=== PATIENT | female | born 1955 ===

== ENCOUNTER 2023-01-31 12:14 | Inpatient (IN) | payer OTHER, MEDICAID ==
[2023-01-31 13:48] VITALS: BMI 33.5
[2023-01-31] MEDS ORDERED: Nitroglycerin 0.4 MG TAB (25 Tab Bottle) SL PRN (14:45)
[2023-01-31] MEDS ORDERED: Acetaminophen 500 MG TAB PO PRN (14:45)
[2023-01-31] MEDS ORDERED: Ondansetron ODT 4 MG TAB PO PRN (14:45)
[2023-01-31] MEDS ORDERED: hydrALAZINE 20 MG/ML VIAL SLOW IVP PRN (14:45)
[2023-01-31] MEDS ORDERED: Dextrose 50% Abboject 50 ML SYRINGE SLOW IVP PRN (14:45)
[2023-01-31] MEDS ORDERED: Dextrose 5% in Water 1,000 ML IV PRN (14:45)
[2023-01-31] MEDS ORDERED: HumaLOG 300 UNITS/3 ML VIAL SC PRN ×2 (14:45)
[2023-01-31 15:05] LABS: #Basophils 0.1 thou/uL (0.0-0.2); #Eosinphils 0.7 thou/uL (0.0-0.7); #Lymphocytes 2.9 thou/uL (1.20-3.40); #Monocytes 0.5 thou/uL (0.11-0.59); #Neutrophils 7.7 thou/uL (1.40-6.50); %Basophils 0.6 % (0.0-1.0); %Eosinophils 5.8 % (0.0-10.0); %Lymphocytes 24.3 % (21.0-51.0); %Monocytes 4.1 % (0.0-10.0); %Neutrophils 65.3 % (42.0-75.0); Hemoglobin 13.5 g/dL (12.0-16.0); Mean Corpuscular Hemoglobin 29.9 pg (27.0-31.0); Mean Corpuscular Volume 90.6 fl (78.0-98.0); Mean Platelet Volume 6.8 fL (7.4-10.4); Platelet Count 343 10x3/uL (130-400); RBC Distribution Width 12.6 % (11.5-14.5); Red Blood Cell (RBC) Count 4.52 mill/uL (4.20-5.40); White Blood Cell (WBC) Count 11.8 10x3/uL (4.8-10.8)
[2023-01-31 15:32] LABS: Anion Gap 12 mmol/L (10-20); BUN (Urea Nitrogen) 12 mg/dL (9.8-20.1); Calc. Creatinine Clearance 99 mL/min (70-130); Carbon Dioxide 25 mmol/L (23-31); Chloride 105 mmol/L (98-107); Estimated GFR 86; Glucose 159 mg/dL (80-115); Potassium 4.4 mmol/L (3.5-5.1); Sodium 138 mmol/L (136-145)
[2023-01-31] MEDS: Sodium Chloride 0.9% 1,000 ML IV SCH (16:16)
[2023-01-31] MEDS: Aspirin Chewable 81 MG TAB PO SCH ×2 (16:17→16:18)
[2023-01-31] MEDS ORDERED: Communication Order-Pharmacy FS SCH (17:00)
[2023-01-31] MEDS: Atorvastatin Calcium 40 MG TAB PO SCH (20:30)
[2023-01-31] MEDS: Famotidine 20 MG TAB PO SCH (20:30)
[2023-01-31] MEDS: buPROPion 75 MG TAB PO SCH (20:35)
[2023-01-31] MEDS ORDERED: Insulin Glargine 30 UNITS/0.3 ML VIAL SC SCH (21:00)
[2023-02-01] MEDS: Ondansetron PF 4 MG/2 ML Vial IVP PRN (04:23)
[2023-02-01 05:03] LABS: #Basophils 0.1 thou/uL (0.0-0.2); #Eosinphils 0.8 thou/uL (0.0-0.7); #Lymphocytes 2.4 thou/uL (1.20-3.40); #Monocytes 0.5 thou/uL (0.11-0.59); #Neutrophils 5.6 thou/uL (1.40-6.50); %Basophils 0.9 % (0.0-1.0); %Eosinophils 8.9 % (0.0-10.0); %Lymphocytes 25.3 % (21.0-51.0); %Monocytes 5.7 % (0.0-10.0); %Neutrophils 59.2 % (42.0-75.0); Hemoglobin 12.5 g/dL (12.0-16.0); Mean Corpuscular HGB CONC 33.6 g/dL (32.0-36.0); Mean Corpuscular Hemoglobin 30.3 pg (27.0-31.0); Mean Corpuscular Volume 90.1 fl (78.0-98.0); Platelet Count 301 10x3/uL (130-400); RBC Distribution Width 12.4 % (11.5-14.5); Red Blood Cell (RBC) Count 4.14 mill/uL (4.20-5.40); White Blood Cell (WBC) Count 9.4 10x3/uL (4.8-10.8)
[2023-02-01] MEDS: Famotidine 20 MG TAB PO SCH ×2 (05:28→21:07)
[2023-02-01] MEDS: buPROPion 75 MG TAB PO SCH ×2 (05:28→21:07)
[2023-02-01 05:29] LABS: Anion Gap 12 mmol/L (10-20); BUN (Urea Nitrogen) 16 mg/dL (9.8-20.1); Calc. Creatinine Clearance 99 mL/min (70-130); Calcium 9.4 mg/dL (7.8-10.44); Carbon Dioxide 26 mmol/L (23-31); Cardiac Risk 4.7 (Less than 4.5); Chloride 107 mmol/L (98-107); Cholesterol 146 mg/dl (< 200 Desired); Estimated GFR 86; Glucose 147 mg/dL (80-115); HDL Cholesterol 31 mg/dL (>60 Neg Risk); LDL Cholesterol, Calculated 96 mg/dL; Potassium 4.1 mmol/L (3.5-5.1); Sodium 141 mmol/L (136-145); Triglycerides 94 mg/dL (Less than 150)
[2023-02-01] MEDS ORDERED: Lidocaine 1% (PF) 30 ML VIAL ONE (08:00)
[2023-02-01] MEDS ORDERED: Heparin 10,000 UNITS/ 10 ML VIAL ONE (08:00)
[2023-02-01] MEDS ORDERED: Midazolam HCl 2 mg/2 ml Vial ONE (08:31)
[2023-02-01] MEDS ORDERED: Aspirin Chewable 81 MG TAB PO SCH (09:00)
[2023-02-01] MEDS ORDERED: Lisinopril 20 MG TAB PO SCH (09:00)
[2023-02-01] MEDS: Sodium Chloride 0.9% 1,000 ML IV SCH (12:32)
[2023-02-01] MEDS ORDERED: Communication Order-Pharmacy FS SCH (17:29)
[2023-02-01] MEDS ORDERED: Temazepam 15 MG CAP PO PRN (17:29)
[2023-02-01] MEDS: Atorvastatin Calcium 40 MG TAB PO SCH (21:07)
[2023-02-01] MEDS ORDERED: CEFAZOLIN 2 GM in Sodium Chloride 0.9% 100 ML IVPB SCH (22:15)
[2023-02-02] MEDS ORDERED: Sevoflurane 250 ML INH ANEST BOTTLE ONE (04:59)
[2023-02-02 05:10] LABS: Anion Gap 11 mmol/L (10-20); BUN (Urea Nitrogen) 12 mg/dL (9.8-20.1); Calc. Creatinine Clearance 96 mL/min (70-130); Calcium 9.4 mg/dL (7.8-10.44); Carbon Dioxide 28 mmol/L (23-31); Chloride 106 mmol/L (98-107); Estimated GFR 84; Glucose 195 mg/dL (80-115); Potassium 4.3 mmol/L (3.5-5.1); Sodium 141 mmol/L (136-145)
[2023-02-02] MEDS: Ondansetron PF 4 MG/2 ML Vial IVP PRN ×3 (05:56→21:32)
[2023-02-02] MEDS ORDERED: Albumin 5% 500 ML ONE (06:31)
[2023-02-02] MEDS ORDERED: Fentanyl 250 MCG/5 ML VIAL ONE (06:44)
[2023-02-02] MEDS ORDERED: Midazolam HCl 5 mg/5 ml Vial ONE (06:44)
[2023-02-02] MEDS ORDERED: Insulin Regular 300 UNITS/3 ML VIAL ONE (06:45)
[2023-02-02] MEDS ORDERED: Norepinephrine 4 MG/4 ML VIAL ONE (06:45)
[2023-02-02] MEDS ORDERED: Aminocaproic Acid 5 GM/20 ML VIAL ONE (06:45)
[2023-02-02] MEDS ORDERED: Rocuronium Bromide 50 MG/5 ML VIAL ONE (06:45)
[2023-02-02] MEDS ORDERED: EPINEPHrine 1 MG/ML AMP ONE (06:45)
[2023-02-02] MEDS ORDERED: Heparin 10,000 UNITS/1 ML VIAL 30,000 UNITS in Sodium Chloride 0.9% 1,000 ML FS SCH (07:00)
[2023-02-02] MEDS ORDERED: CEFAZOLIN 2 GM VIAL ONE (07:25)
[2023-02-02] MEDS ORDERED: Lidocaine 1% MPF 2 ML VIAL ONE (07:25)
[2023-02-02] MEDS ORDERED: Sodium Chloride 0.9% 100 ML ONE (07:25)
[2023-02-02] MEDS ORDERED: Papaverine 60 MG/2 ML VIAL ONE (07:42)
[2023-02-02] MEDS ORDERED: Lidocaine 1% PF 5 ML VIAL ONE (07:42)
[2023-02-02] MEDS ORDERED: Thrombin 5000 UNITS/5 ML VIAL ONE (07:42)
[2023-02-02] MEDS ORDERED: Protamine Sulfate 250 MG/25 ML VIAL ONE (07:42)
[2023-02-02] MEDS ORDERED: Potassium Chloride 60 MEQ/30 ML VIAL ONE (07:42)
[2023-02-02] MEDS ORDERED: Esmolol 100 MG/10 ML VIAL ONE (07:42)
[2023-02-02] MEDS ORDERED: Heparin 5,000 UNITS/ML VIAL ONE (07:42)
[2023-02-02] MEDS ORDERED: Vancomycin 1 GM VIAL ONE (07:42)
[2023-02-02] MEDS ORDERED: Magnesium 5 GM/10 ML VIAL ONE (07:42)
[2023-02-02] MEDS ORDERED: PROPOFOL 200 MG/20 ML VIAL ONE (07:42)
[2023-02-02] MEDS ORDERED: Mannitol 12.5 GM/50 ML ONE (07:42)
[2023-02-02] MEDS ORDERED: Lidocaine 2% PF 100 mg/5 ml Syringe ONE (07:42)
[2023-02-02] MEDS ORDERED: Heparin 30,000 units/30 ml VIAL ONE (07:42)
[2023-02-02] MEDS ORDERED: Sodium Bicarb 50 MEQ/50 ML VIAL ONE (07:42)
[2023-02-02] MEDS ORDERED: Cardioplegic Soln 1,000 ML BAG ONE (07:42)
[2023-02-02] MEDS ORDERED: Rocuronium Bromide 10 MG/ML (10ML VIAL) ONE (07:42)
[2023-02-02] MEDS ORDERED: Calcium Chloride 1 GM/10 ML Abboject SYRINGE ONE (07:42)
[2023-02-02] MEDS ORDERED: Bisacodyl 10 MG SUPP PR PRN (11:35)
[2023-02-02] MEDS ORDERED: Post-Op Insulin Drip Protocol IVPB ONE (11:35)
[2023-02-02] MEDS ORDERED: Nitroglycerin 50 MG/250 ML BOT 250 ML IVPB PRN (11:35)
[2023-02-02] MEDS ORDERED: Ipratropium/Albuterol 3 ML NEB NEB PRN (11:35)
[2023-02-02] MEDS ORDERED: Mag-Al 1200 mg/1200 mg/30 ML UDCUP PO PRN (11:35)
[2023-02-02] MEDS ORDERED: Hetastarch 6% 500 ML 500 ML IVPB PRN (11:35)
[2023-02-02] MEDS ORDERED: Amiodarone 150 MG in Dextrose 5% in Water 100 ML IVPB SCH (11:35)
[2023-02-02] MEDS ORDERED: DOPamine 400 MG/D5W 250 ML 250 ML IVPB PRN (11:35)
[2023-02-02] MEDS ORDERED: niCARdipine 25 MG in Sodium Chloride 0.9% 250 ML 250 ML IVPB PRN (11:35)
[2023-02-02] MEDS ORDERED: Guaifenesin DM 100-10/5 ML UDCUP PO PRN (11:35)
[2023-02-02] MEDS ORDERED: NOREPINEPHRINE 8 MG/250 ML-D5W 250 ML IVPB PRN (11:35)
[2023-02-02] MEDS ORDERED: fentaNYL 50 mcg/mL 1 mL Vial SLOW IVP PRN (11:39)
[2023-02-02 11:57] LABS: Actual Bicarbonate (HCO3a) 22.3 mEq/L (22-28); Base Excess (BEa) -2.4 mEq/L (-2.0 to +3.0); CO2 Tension 37.9 mmHg (35.0-45.0); Calcium, Ionized (arterial) 1.16 mmol/L (1.12-1.30); Carboxyhemoglobin (COHb) 0.6 gm% (0.0-3.0); Hemoglobin (Hb) 11.9 g/dL (12.0-16.0); O2 Tension (PaO2), arterial 76.6 mmHg (> 80.0); Potassium - ABG Lab 3.59 mmol/L (3.70-5.30); pH, Arterial 7.39 (7.35-7.45)
[2023-02-02] MEDS ORDERED: Dextrose 5% in Water 1,000 ML IV PRN (12:00)
[2023-02-02] MEDS ORDERED: Insulin Regular 300 UNITS/3 ML VIAL SC PRN (12:00)
[2023-02-02] MEDS ORDERED: HUMULIN R 100 UNITS in Sodium Chloride 0.9% 100 ML IVPB SCH (12:00)
[2023-02-02] MEDS ORDERED: Dextrose 50% Abboject 50 ML SYRINGE SLOW IVP PRN (12:00)
[2023-02-02 12:02] LABS: #Basophils 0.1 thou/uL (0.0-0.2); #Eosinphils 0.2 thou/uL (0.0-0.7); #Lymphocytes 1.3 thou/uL (1.20-3.40); #Monocytes 0.4 thou/uL (0.11-0.59); #Neutrophils 14.4 thou/uL (1.40-6.50); %Basophils 0.4 % (0.0-1.0); %Eosinophils 1.5 % (0.0-10.0); %Lymphocytes 7.9 % (21.0-51.0); %Monocytes 2.3 % (0.0-10.0); %Neutrophils 87.8 % (42.0-75.0); Hemoglobin 11.7 g/dL (12.0-16.0); Mean Corpuscular HGB CONC 33.6 g/dL (32.0-36.0); Mean Corpuscular Hemoglobin 30.7 pg (27.0-31.0); Mean Corpuscular Volume 91.2 fl (78.0-98.0); Platelet Count 202 10x3/uL (130-400); RBC Distribution Width 12.4 % (11.5-14.5); Red Blood Cell (RBC) Count 3.83 mill/uL (4.20-5.40); White Blood Cell (WBC) Count 16.4 10x3/uL (4.8-10.8)
[2023-02-02 12:04] LABS: Puncture Site ALINE
[2023-02-02 12:05] LABS: ALV-art Gradient 303.825 mmHg (0-20)
[2023-02-02] MEDS: Sodium Chloride 0.9% 1,000 ML IV SCH (12:16)
[2023-02-02] MEDS: Lactated Ringer's 1,000 ML IV SCH (12:16)
[2023-02-02 12:17] LABS: INR-International Normal Ratio 1.2; PTT 28.2 sec (22.9-36.1); Prothrombin Time 16.1 sec (12.0-14.7)
[2023-02-02 12:23] LABS: Anion Gap 12 mmol/L (10-20); BUN (Urea Nitrogen) 8 mg/dL (9.8-20.1); Calc. Creatinine Clearance 121 mL/min (70-130); Calcium 8.3 mg/dL (7.8-10.44); Carbon Dioxide 22 mmol/L (23-31); Chloride 112 mmol/L (98-107); Estimated GFR 98; Glucose 142 mg/dL (80-115); Potassium 3.6 mmol/L (3.5-5.1); Sodium 142 mmol/L (136-145)
[2023-02-02] MEDS: Potassium Chloride 20 MEQ/100 ML PREMIX BAG IVPB PRN ×2 (12:34→19:51)
[2023-02-02] MEDS: Amiodarone 450 MG in Dextrose 5% in Water 250 ML IVPB SCH ×2 (12:36→20:09)
[2023-02-02] MEDS: Morphine 2 MG/ML VIAL SLOW IVP PRN ×2 (12:58→14:18)
[2023-02-02] MEDS: CEFAZOLIN 2 GM in Sodium Chloride 0.9% 100 ML IVPB SCH ×2 (15:03→23:47)
[2023-02-02 16:20] LABS: Hemoglobin 11.7 g/dL (12.0-16.0)
[2023-02-02 17:17] LABS: Actual Bicarbonate (HCO3a) 21.3 mEq/L (22-28); Base Excess (BEa) -3.6 mEq/L (-2.0 to +3.0); Calcium, Ionized (arterial) 1.15 mmol/L (1.12-1.30); Carboxyhemoglobin (COHb) 0.7 gm% (0.0-3.0); Hemoglobin (Hb) 12.5 g/dL (12.0-16.0); O2 Tension (PaO2), arterial 124.8 mmHg (> 80.0); Potassium - ABG Lab 3.81 mmol/L (3.70-5.30); pH, Arterial 7.37 (7.35-7.45)
[2023-02-02 17:18] LABS: Potassium 3.8 mmol/L (3.5-5.1)
[2023-02-02 17:22] LABS: Puncture Site Arterial Line
[2023-02-02] MEDS: fentaNYL 50 mcg/mL 1 mL Vial SLOW IVP PRN ×3 (17:31→21:19)
[2023-02-02] MEDS: Famotidine/PF 20 mg/2ml Vial SLOW IVP SCH (21:32)
[2023-02-02] MEDS: HYDROcodone/Acetaminophen 5/325 mg Tablet PO PRN (22:04)
[2023-02-02] MEDS: Atorvastatin Calcium 20 MG TAB PO SCH (22:05)
[2023-02-03] MEDS: fentaNYL 50 mcg/mL 1 mL Vial SLOW IVP PRN ×2 (04:16→20:10)
[2023-02-03 04:31] LABS: #Lymphocytes 1.6 thou/uL (1.20-3.40); #Neutrophils 11.2 thou/uL (1.40-6.50); %Basophils 0.1 % (0.0-1.0); %Eosinophils 0.1 % (0.0-10.0); %Lymphocytes 11.2 % (21.0-51.0); %Monocytes 7.5 % (0.0-10.0); %Neutrophils 81.1 % (42.0-75.0); Hemoglobin 11.6 g/dL (12.0-16.0); Mean Corpuscular Hemoglobin 30.2 pg (27.0-31.0); Mean Corpuscular Volume 91.5 fl (78.0-98.0); Mean Platelet Volume 7.2 fL (7.4-10.4); Platelet Count 230 10x3/uL (130-400); RBC Distribution Width 12.5 % (11.5-14.5); Red Blood Cell (RBC) Count 3.84 mill/uL (4.20-5.40); White Blood Cell (WBC) Count 13.8 10x3/uL (4.8-10.8)
[2023-02-03 04:49] LABS: Anion Gap 11 mmol/L (10-20); BUN (Urea Nitrogen) 7 mg/dL (9.8-20.1); Calc. Creatinine Clearance 114 mL/min (70-130); Calcium 8.7 mg/dL (7.8-10.44); Carbon Dioxide 26 mmol/L (23-31); Chloride 108 mmol/L (98-107); Estimated GFR 97; Glucose 120 mg/dL (80-115); Potassium 4.3 mmol/L (3.5-5.1); Sodium 141 mmol/L (136-145)
[2023-02-03] MEDS: HYDROcodone/Acetaminophen 5/325 mg Tablet PO PRN ×3 (05:34→17:57)
[2023-02-03] MEDS: CEFAZOLIN 2 GM in Sodium Chloride 0.9% 100 ML IVPB SCH (06:32)
[2023-02-03] MEDS: Acetaminophen 325 MG TAB PO PRN (06:32)
[2023-02-03] MEDS: Lactated Ringer's 1,000 ML IV SCH ×2 (06:33→06:34)
[2023-02-03] MEDS: Famotidine/PF 20 mg/2ml Vial SLOW IVP SCH (08:25)
[2023-02-03] MEDS: Aspirin Chewable 81 MG TAB PO SCH (08:25)
[2023-02-03] MEDS: Polyethylene Glycol 3350 17 GM Packet PO SCH (08:25)
[2023-02-03] MEDS: Magnesium 2 GM/50 ML(in water) 2 GM in Premix Bag 1 BAG IVPB SCH (08:25)
[2023-02-03] MEDS ORDERED: Insulin Glargine 30 UNITS/0.3 ML VIAL SC SCH ×2 (09:15→21:00)
[2023-02-03] MEDS ORDERED: Amiodarone 200 MG TAB PO SCH (10:00)
[2023-02-03] MEDS ORDERED: Nitroglycerin 0.4 MG TAB (25 Tab Bottle) SL PRN (10:11)
[2023-02-03] MEDS ORDERED: Clopidogrel Bisulfate 75 MG TAB PO SCH (11:30)
[2023-02-03] MEDS ORDERED: Insulin Glargine 30 UNITS/0.3 ML VIAL SC PRN (11:46)
[2023-02-03] MEDS ORDERED: Dextrose 5% in Water 1,000 ML IV PRN (12:00)
[2023-02-03] MEDS ORDERED: Dextrose 50% Abboject 50 ML SYRINGE SLOW IVP PRN (12:00)
[2023-02-03] MEDS: Insulin Regular 300 UNITS/3 ML VIAL SC PRN ×2 (12:07→17:49)
[2023-02-03] MEDS ORDERED: Morphine 2 MG/ML VIAL SLOW IVP PRN (15:25)
[2023-02-03] MEDS: Carvedilol 3.125 MG TAB PO SCH (16:21)
[2023-02-03 17:27] LABS: Bacteria/HPF None Seen HPF (None Seen); Bilirubin Negative (Negative); Blood, Urine Negative (Negative); Clarity Clear (Clear); Glucose, Urine (Dipstick) Normal (Negative); Ketone, Urine 60 mg/dL (Negative); Leukocyte Negative Leu/uL (Negative); Nitrite Negative (Negative); Protein, Urine (Dipstick) 20 mg/dL (Neg-Trace); RBC/HPF 0-3 HPF (0-3); Specific Gravity, Urine 1.029 (1.002-1.036); Squamous Epithelial 0-3 HPF (0-3); pH, Urine 5.5 (5.0-9.0)
[2023-02-03] MEDS ORDERED: ALPRAZolam 0.25 MG TAB PO SCH (19:30)
[2023-02-03] MEDS: Atorvastatin Calcium 20 MG TAB PO SCH (20:27)
[2023-02-03] MEDS: Amiodarone 200 MG TAB PO SCH (20:27)
[2023-02-03] MEDS ORDERED: Famotidine 20 MG TAB PO SCH (21:00)
[2023-02-04] MEDS: HYDROcodone/Acetaminophen 5/325 mg Tablet PO PRN ×2 (00:29→18:27)
[2023-02-04 04:23] LABS: #Eosinphils 0.1 thou/uL (0.0-0.7); #Lymphocytes 2.2 thou/uL (1.20-3.40); #Neutrophils 9.3 thou/uL (1.40-6.50); %Basophils 0.3 % (0.0-1.0); %Eosinophils 0.6 % (0.0-10.0); %Lymphocytes 17.4 % (21.0-51.0); %Monocytes 8.1 % (0.0-10.0); %Neutrophils 73.6 % (42.0-75.0); Hemoglobin 11.4 g/dL (12.0-16.0); Mean Corpuscular HGB CONC 32.7 g/dL (32.0-36.0); Mean Corpuscular Hemoglobin 29.9 pg (27.0-31.0); Mean Corpuscular Volume 91.4 fl (78.0-98.0); Mean Platelet Volume 7.7 fL (7.4-10.4); Platelet Count 200 10x3/uL (130-400); RBC Distribution Width 12.5 % (11.5-14.5); Red Blood Cell (RBC) Count 3.82 mill/uL (4.20-5.40); White Blood Cell (WBC) Count 12.6 10x3/uL (4.8-10.8)
[2023-02-04 04:41] LABS: Anion Gap 12 mmol/L (10-20); BUN (Urea Nitrogen) 10 mg/dL (9.8-20.1); Calc. Creatinine Clearance 114 mL/min (70-130); Calcium 8.5 mg/dL (7.8-10.44); Carbon Dioxide 25 mmol/L (23-31); Chloride 104 mmol/L (98-107); Estimated GFR 97; Glucose 220 mg/dL (80-115); Potassium 4.4 mmol/L (3.5-5.1); Sodium 137 mmol/L (136-145)
[2023-02-04] MEDS: Insulin Regular 300 UNITS/3 ML VIAL SC PRN ×3 (06:33→18:13)
[2023-02-04] MEDS: Aspirin Chewable 81 MG TAB PO SCH (08:50)
[2023-02-04] MEDS: Carvedilol 3.125 MG TAB PO SCH ×2 (08:50→18:14)
[2023-02-04] MEDS: Potassium Chloride 10 MEQ TAB PO SCH (08:50)
[2023-02-04] MEDS: Furosemide 40 MG TAB PO SCH (08:50)
[2023-02-04] MEDS: Senokot S 8.6-50 MG TAB PO SCH ×2 (08:50→20:15)
[2023-02-04] MEDS: Amiodarone 200 MG TAB PO SCH ×2 (08:50→20:15)
[2023-02-04] MEDS: Insulin Glargine 30 UNITS/0.3 ML VIAL SC SCH ×2 (08:51→20:15)
[2023-02-04] MEDS: Polyethylene Glycol 3350 17 GM Packet PO SCH (08:53)
[2023-02-04] MEDS: Magnesium 2 GM/50 ML(in water) 2 GM in Premix Bag 1 BAG IVPB SCH (08:57)
[2023-02-04] MEDS ORDERED: Clopidogrel Bisulfate 75 MG TAB PO SCH (09:00)
[2023-02-04] MEDS ORDERED: Ketorolac Tromethamine 30 MG/ML VIAL IVP SCH (09:15)
[2023-02-04] MEDS: Atorvastatin Calcium 20 MG TAB PO SCH (20:15)
[2023-02-05 04:57] LABS: #Eosinphils 0.4 thou/uL (0.0-0.7); #Lymphocytes 1.6 thou/uL (1.20-3.40); #Monocytes 0.8 thou/uL (0.11-0.59); #Neutrophils 8.2 thou/uL (1.40-6.50); %Basophils 0.4 % (0.0-1.0); %Eosinophils 3.6 % (0.0-10.0); %Lymphocytes 14.2 % (21.0-51.0); %Monocytes 7.2 % (0.0-10.0); %Neutrophils 74.6 % (42.0-75.0); Hemoglobin 10.2 g/dL (12.0-16.0); Mean Corpuscular HGB CONC 32.4 g/dL (32.0-36.0); Mean Corpuscular Hemoglobin 29.6 pg (27.0-31.0); Mean Corpuscular Volume 91.4 fl (78.0-98.0); Mean Platelet Volume 7.8 fL (7.4-10.4); Platelet Count 212 10x3/uL (130-400); RBC Distribution Width 12.2 % (11.5-14.5); Red Blood Cell (RBC) Count 3.44 mill/uL (4.20-5.40)
[2023-02-05 05:16] LABS: Anion Gap 11 mmol/L (10-20); BUN (Urea Nitrogen) 17 mg/dL (9.8-20.1); Calc. Creatinine Clearance 99 mL/min (70-130); Calcium 8.8 mg/dL (7.8-10.44); Carbon Dioxide 26 mmol/L (23-31); Chloride 103 mmol/L (98-107); Estimated GFR 88; Glucose 170 mg/dL (80-115); Potassium 3.7 mmol/L (3.5-5.1); Sodium 136 mmol/L (136-145)
[2023-02-05] MEDS: Insulin Regular 300 UNITS/3 ML VIAL SC PRN ×3 (05:59→17:37)
[2023-02-05] MEDS: Polyethylene Glycol 3350 17 GM Packet PO SCH (08:49)
[2023-02-05] MEDS: Potassium Chloride 10 MEQ TAB PO SCH (08:49)
[2023-02-05] MEDS: Amiodarone 200 MG TAB PO SCH ×2 (08:49→20:16)
[2023-02-05] MEDS: Lisinopril 2.5 MG TAB PO SCH ×2 (08:49→20:16)
[2023-02-05] MEDS: Insulin Glargine 30 UNITS/0.3 ML VIAL SC SCH ×2 (08:49→20:16)
[2023-02-05] MEDS: Aspirin Chewable 81 MG TAB PO SCH (08:49)
[2023-02-05] MEDS: Furosemide 40 MG TAB PO SCH (08:49)
[2023-02-05] MEDS: Senokot S 8.6-50 MG TAB PO SCH ×2 (08:49→20:16)
[2023-02-05] MEDS: Carvedilol 3.125 MG TAB PO SCH ×2 (08:50→17:37)
[2023-02-05] MEDS ORDERED: Lisinopril 2.5 MG TAB PO SCH (09:00)
[2023-02-05] MEDS: Acetaminophen 325 MG TAB PO PRN (14:51)
[2023-02-05] MEDS: Atorvastatin Calcium 20 MG TAB PO SCH (20:16)
[2023-02-05] MEDS: HYDROcodone/Acetaminophen 5/325 mg Tablet PO PRN (20:18)
[2023-02-06] MEDS: Acetaminophen 325 MG TAB PO PRN (06:23)
[2023-02-06] MEDS: Bisacodyl 5 MG TAB PO PRN (06:23)
[2023-02-06] MEDS: Insulin Regular 300 UNITS/3 ML VIAL SC PRN ×3 (06:24→21:39)
[2023-02-06] MEDS: HYDROcodone/Acetaminophen 5/325 mg Tablet PO PRN ×2 (08:58→21:51)
[2023-02-06] MEDS: Insulin Glargine 30 UNITS/0.3 ML VIAL SC SCH ×2 (08:59→21:38)
[2023-02-06] MEDS: Carvedilol 3.125 MG TAB PO SCH ×2 (08:59→18:08)
[2023-02-06] MEDS: Potassium Chloride 10 MEQ TAB PO SCH (08:59)
[2023-02-06] MEDS: Aspirin Chewable 81 MG TAB PO SCH (08:59)
[2023-02-06] MEDS: Lisinopril 2.5 MG TAB PO SCH ×2 (08:59→21:37)
[2023-02-06] MEDS: Amiodarone 200 MG TAB PO SCH ×2 (08:59→21:38)
[2023-02-06] MEDS: Furosemide 40 MG TAB PO SCH (08:59)
[2023-02-06] MEDS: Senokot S 8.6-50 MG TAB PO SCH ×2 (08:59→21:38)
[2023-02-06] MEDS: metFORMIN 500 MG TAB PO SCH ×2 (08:59→18:08)
[2023-02-06] MEDS: Polyethylene Glycol 3350 17 GM Packet PO SCH (09:00)
[2023-02-06] MEDS: Atorvastatin Calcium 40 MG TAB PO SCH (21:38)
[2023-02-07] MEDS: Ondansetron PF 4 MG/2 ML Vial IVP PRN (04:04)
[2023-02-07] MEDS ORDERED: Fleet Saline Enema 133 ML BOT PR SCH (07:00)
[2023-02-07] MEDS: Senokot S 8.6-50 MG TAB PO SCH ×2 (08:36→21:23)
[2023-02-07] MEDS: Aspirin Chewable 81 MG TAB PO SCH (08:36)
[2023-02-07] MEDS: Lisinopril 2.5 MG TAB PO SCH ×2 (08:36→21:22)
[2023-02-07] MEDS: Amiodarone 200 MG TAB PO SCH ×2 (08:36→21:22)
[2023-02-07] MEDS: Potassium Chloride 10 MEQ TAB PO SCH (08:36)
[2023-02-07] MEDS: Insulin Glargine 30 UNITS/0.3 ML VIAL SC SCH ×2 (08:36→21:24)
[2023-02-07] MEDS: metFORMIN 500 MG TAB PO SCH ×2 (08:36→17:53)
[2023-02-07] MEDS: Furosemide 40 MG TAB PO SCH (08:36)
[2023-02-07] MEDS: Carvedilol 3.125 MG TAB PO SCH ×2 (08:36→17:53)
[2023-02-07] MEDS: Polyethylene Glycol 3350 17 GM Packet PO SCH ×2 (08:37→21:23)
[2023-02-07] MEDS: Atorvastatin Calcium 40 MG TAB PO SCH (21:22)
[2023-02-08] MEDS: metFORMIN 500 MG TAB PO SCH ×2 (08:15→18:07)
[2023-02-08] MEDS: Amiodarone 200 MG TAB PO SCH (08:15)
[2023-02-08] MEDS: Potassium Chloride 10 MEQ TAB PO SCH (08:15)
[2023-02-08] MEDS: Lisinopril 2.5 MG TAB PO SCH (08:15)
[2023-02-08] MEDS: Senokot S 8.6-50 MG TAB PO SCH (08:15)
[2023-02-08] MEDS: Aspirin Chewable 81 MG TAB PO SCH (08:15)
[2023-02-08] MEDS: Carvedilol 3.125 MG TAB PO SCH ×2 (08:15→18:06)
[2023-02-08] MEDS: Insulin Glargine 30 UNITS/0.3 ML VIAL SC SCH (08:16)
[2023-02-08] MEDS: Polyethylene Glycol 3350 17 GM Packet PO SCH (08:16)
[2023-02-08 12:00] LABS: Actual Bicarbonate (HCO3a) 21.7 mEq/L (22-28); Analyzer IN Cardio OR; Base Excess (BEa) -2.2 mEq/L (-2.0 to +3.0); CO2 Tension 34.5 mmHg (35.0-45.0); Calcium, Ionized (arterial) 1.13 mmol/L (1.12-1.30); Carboxyhemoglobin (COHb) 0.9 gm% (0.0-3.0); Hemoglobin (Hb) 12.4 g/dL (12.0-16.0); O2 Tension (PaO2), arterial 266.5 mmHg (> 80.0); Potassium - ABG Lab 4.05 mmol/L (3.70-5.30); pH, Arterial 7.42 (7.35-7.45)
[2023-02-08 12:01] LABS: Actual Bicarbonate (HCO3a) 26.3 mEq/L (22-28); Analyzer IN Cardio OR; Base Excess (BEa) 0.2 mEq/L (-2.0 to +3.0); CO2 Tension 50.4 mmHg (35.0-45.0); Calcium, Ionized (arterial) 1.05 mmol/L (1.12-1.30); Carboxyhemoglobin (COHb) 0.3 gm% (0.0-3.0); Hemoglobin (Hb) 9.1 g/dL (12.0-16.0); O2 Tension (PaO2), arterial 361.8 mmHg (> 80.0); Potassium - ABG Lab 4.06 mmol/L (3.70-5.30); pH, Arterial 7.34 (7.35-7.45)
[2023-02-08 12:01] LABS: Analyzer IN Cardio OR; Base Excess (BEa) -0.8 mEq/L (-2.0 to +3.0); CO2 Tension 47.6 mmHg (35.0-45.0); Calcium, Ionized (arterial) 0.94 mmol/L (1.12-1.30); Carboxyhemoglobin (COHb) 0.6 gm% (0.0-3.0); Hemoglobin (Hb) 8.2 g/dL (12.0-16.0); O2 Tension (PaO2), arterial 562.8 mmHg (> 80.0); Potassium - ABG Lab 3.82 mmol/L (3.70-5.30); pH, Arterial 7.34 (7.35-7.45)
[2023-02-08 12:01] LABS: Analyzer IN Cardio OR; Base Excess (BEa) -0.3 mEq/L (-2.0 to +3.0); CO2 Tension 38.2 mmHg (35.0-45.0); Carboxyhemoglobin (COHb) 0.5 gm% (0.0-3.0); Hemoglobin (Hb) 12.3 g/dL (12.0-16.0); O2 Tension (PaO2), arterial 355.8 mmHg (> 80.0); pH, Arterial 7.42 (7.35-7.45)
[2023-02-08 12:02] LABS: Puncture Site Arterial Line
[2023-02-08 12:02] LABS: Puncture Site Arterial Line
[2023-02-08 12:02] LABS: Actual Bicarbonate (HCO3a) 23.5 mEq/L (22-28); Analyzer IN Cardio OR; Base Excess (BEa) -0.8 mEq/L (-2.0 to +3.0); CO2 Tension 37.1 mmHg (35.0-45.0); Calcium, Ionized (arterial) 1.23 mmol/L (1.12-1.30); Carboxyhemoglobin (COHb) 0.4 gm% (0.0-3.0); Hemoglobin (Hb) 8.9 g/dL (12.0-16.0); O2 Tension (PaO2), arterial 131.6 mmHg (> 80.0); Potassium - ABG Lab 3.88 mmol/L (3.70-5.30); pH, Arterial 7.42 (7.35-7.45)
[2023-02-08 12:03] LABS: Puncture Site Arterial Line
[2023-02-08 12:03] LABS: Puncture Site Arterial Line
[2023-02-08 12:03] LABS: Puncture Site Arterial Line
[2023-02-08] MEDS: Acetaminophen 325 MG TAB PO PRN ×2 (14:05→18:06)
[2023-02-08] MEDS: Bisacodyl 5 MG TAB PO PRN (14:07)
[2023-02-08 16:01] VITALS: BP 131/66; TEMP 97.7
== END 2023-02-08 18:27 | disposition home or self-care (01) | DRG 233 ==
LOC: 2SW 12:50 → CCU 02-02 09:07 → 2NO 02-03 11:21
PROVIDERS: ADMIT Internal Medicine; ATTEND Internal Medicine
PROC: 4A023N7 Measurement of Cardiac Sampling and Pressure, Left Heart, Percutaneous Approach (ICD-10-PCS; 2023-02-01)
PROC: B2111ZZ Fluoroscopy of Multiple Coronary Arteries using Low Osmolar Contrast (ICD-10-PCS; 2023-02-01)
PROC: B2151ZZ Fluoroscopy of Left Heart using Low Osmolar Contrast (ICD-10-PCS; 2023-02-01)
PROC: 02100Z9 Bypass Coronary Artery, One Artery from Left Internal Mammary, Open Approach (ICD-10-PCS; principal; 2023-02-02)
PROC: 021109W Bypass Coronary Artery, Two Arteries from Aorta with Autologous Venous Tissue, Open Approach (ICD-10-PCS; 2023-02-02)
PROC: 06BQ0ZZ Excision of Left Saphenous Vein, Open Approach (ICD-10-PCS; 2023-02-02)
PROC: 5A1221Z Performance of Cardiac Output, Continuous (ICD-10-PCS; 2023-02-02)
PROC: 02L70CK Occlusion of Left Atrial Appendage with Extraluminal Device, Open Approach (ICD-10-PCS; 2023-02-02)
DX: I25.10 Atherosclerotic heart disease of native coronary artery without angina pectoris (principal); J96.01 Acute respiratory failure with hypoxia; I47.1 Supraventricular tachycardia; I48.91 Unspecified atrial fibrillation; E11.9 Type 2 diabetes mellitus without complications; I10 Essential (primary) hypertension; F41.9 Anxiety disorder, unspecified; F32.A Depression, unspecified; I42.8 Other cardiomyopathies; M19.90 Unspecified osteoarthritis, unspecified site; I25.5 Ischemic cardiomyopathy; K59.00 Constipation, unspecified; Z98.42 Cataract extraction status, left eye; Z90.49 Acquired absence of other specified parts of digestive tract; Z98.41 Cataract extraction status, right eye; Z79.4 Long term (current) use of insulin; Z79.899 Other long term (current) drug therapy; Z79.84 Long term (current) use of oral hypoglycemic drugs; Z88.1 Allergy status to other antibiotic agents; Z88.2 Allergy status to sulfonamides; Z88.8 Allergy status to other drugs, medicaments and biological substances; Z83.3 Family history of diabetes mellitus; Z82.49 Family history of ischemic heart disease and other diseases of the circulatory system
CPT/HCPCS: 36415; 36416; 36430; 71045; 80048; 80061; 81001; 82805; 85025; 85610; 85730; 86850; 86900; 86901; 93005; 93010; 93458; 93798; 94002; 94150; 99152; 99153; C1751; C1769; C1776; J0171; J0282; J1642; J1644; J1815; J1885; J2001; J2150; J2250; J2272; J2405; J2440; J2704; J2720; J3010; J3370; J3475; J3480; J3490; J7050; J7070; J7120; P9045; S0017; S0028

== ENCOUNTER 2023-09-14 00:46 | Emergency (ER) | payer OTHER, MEDICAID ==
[2023-09-14 01:55] LABS: #Basophils 0.1 thou/uL (0.0-0.2); #Eosinphils 0.6 thou/uL (0.0-0.7); #Monocytes 0.6 thou/uL (0.11-0.59); #Neutrophils 8.2 thou/uL (1.40-6.50); %Basophils 0.6 % (0.0-1.0); %Eosinophils 5.3 % (0.0-10.0); %Lymphocytes 10.9 % (21.0-51.0); %Monocytes 5.4 % (0.0-10.0); %Neutrophils 77.1 % (42.0-75.0); Hematocrit 30.2 % (36.0-47.0); Hemoglobin 10.1 g/dL (12.0-16.0); Mean Corpuscular HGB CONC 33.4 g/dL (32.0-36.0); Mean Corpuscular Hemoglobin 27.2 pg (27.0-31.0); Mean Corpuscular Volume 81.4 fl (78.0-98.0); Mean Platelet Volume 10.4 fL (7.4-10.4); Platelet Count 324 10x3/uL (130-400); RBC Distribution Width 19.5 % (11.5-14.5); Red Blood Cell (RBC) Count 3.71 mill/uL (4.20-5.40); White Blood Cell (WBC) Count 10.6 10x3/uL (4.8-10.8)
[2023-09-14 02:19] LABS: ALT (SGPT) 188 U/L (8-55); AST (SGOT) 172 U/L (5-34); Albumin 3.4 g/dL (3.4-4.8); Alkaline Phosphatase 926 U/L (40-110); Anion Gap 14 mmol/L (10-20); BUN (Urea Nitrogen) 9 mg/dL (9.8-20.1); Bilirubin, Total 12.7 mg/dL (0.2-1.2); Calc. Creatinine Clearance 0 mL/min (70-130); Calcium 9.2 mg/dL (7.8-10.44); Carbon Dioxide 22 mmol/L (23-31); Chloride 103 mmol/L (98-107); Estimated GFR 92; Globulin 3.2 g/dL (2.4-3.5); Glucose 167 mg/dL (80-115); Lipase Less than 4 U/L (8-78); Potassium 3.6 mmol/L (3.5-5.1); Protein, Total 6.6 g/dL (5.8-8.1); Sodium 135 mmol/L (136-145)
[2023-09-14 02:29] LABS: Troponin I Less than 0.010 ng/mL (< 0.028)
[2023-09-14 06:18] LABS: Bilirubin 2+ (Negative); Blood, Urine Negative (Negative); Clarity Clear (Clear); Glucose, Urine (Dipstick) Normal (Negative); Ketone, Urine Negative (Negative); Leukocyte Negative Leu/uL (Negative); Nitrite Negative (Negative); Protein, Urine (Dipstick) Negative (Neg-Trace); RBC/HPF None Seen HPF (0-3); Specific Gravity, Urine 1.008 (1.002-1.036); Squamous Epithelial 0-3 HPF (0-3); Urobilinogen Normal mg/dL (Less than 2); WBC/HPF 0-3 HPF (0-3)
[2023-09-14 06:20] LABS: Bacteria/HPF 1+ HPF (None Seen)
[2023-09-14] MEDS ORDERED: Iopamidol 370 76% 100 ML VIAL ONE (13:30)
== END 2023-09-14 09:17 | disposition short-term general hospital (02) ==
LOC: ERS 00:46
DX: R10.9 Unspecified abdominal pain (principal); K83.1 Obstruction of bile duct; K86.9 Disease of pancreas, unspecified; E11.9 Type 2 diabetes mellitus without complications; I10 Essential (primary) hypertension; Z79.899 Other long term (current) drug therapy; Z79.4 Long term (current) use of insulin
CPT/HCPCS: 36415; 71045; 74177; 80053; 81001; 83605; 83690; 83880; 84439; 84443; 84484; 85025; 86850; 86900; 86901; 87040; 93005; 96360; 96361; Q9967